=== PATIENT | female | born 1990 | race Two or more races ===

== ENCOUNTER 2017-11-18 10:57 | Emergency (ER) | payer MEDICAID ==
[~2017-11-18] VITALS: Ht 152.4 cm; Wt 112.5 kg
[2017-11-18 11:11] VITALS: BP 139/72
[2017-11-18 12:15] LABS: APPEARANCE,URINE CLEAR; BILIRUBIN, URINE NEGATIVE (NEGATIVE); GLUCOSE, URINE (UA) NEGATIVE (NEGATIVE); KETONES,URINE NEGATIVE (NEGATIVE); LEUKOCYTE ESTERASE ,URINE 3+ (NEGATIVE); NITRITE,URINE NEGATIVE (NEGATIVE); PH,URINE 7 (4.5-8.0); PROTEIN,URINE NEGATIVE (NEGATIVE); UROBILINOGEN,URINE NORMAL MG/DL (0.0-1.0)
[2017-11-18 12:31] LABS: COLOR,URINE YELLOW
--- NOTE | 2017-11-18 12:47 | Emergency Room Report ---
History of Present Illness General Chief Complaint: Multiple Trauma/Fall Source: Patient Present Illness HPI Patient fell in the shower this morning. She hit her head and states LOC for "about a minute". She remembers falling and hitting her head. No NV after event. Occipital tenderness 8/10 and also L little toe pain (more in foot). This radiates slightly to body. Some lower back pain also, but ambulatory and able to sit and stand without difficulty. No neck pain. No preceding dizziness or palpitations. Not on blood thinners. No medicine taken. No fevers, cough, dysuria. Menses irregular and not sure if she is . No problems moving her bowels. ( here with alcohol withdrawal.) Allergies: Coded Allergies: No Known Allergies (Unverified , 11/18/17) Patient History Past Medical History: see triage record Social History: Denies: smoking Social History Narrative Last Menstrual Period: 10/31/17 Reviewed Nursing Documentation: PMH: Agreed; PSxH: Agreed Review of Systems All Other Systems: negative except mentioned in HPI Physical Exam Vital Signs Date Time Temp Pulse Resp B/P (MAP) Pulse Ox O2 Delivery O2 Flow Rate FiO2 11/18/17 11:01 98.4 86 18 139/72 97 Room Air 98.4 Sp02 EP Interpretation: reviewed, normal General Appearance: well appearing, no apparent distress, GCS 15 Head: normocephalic, other - tender occiput with hematoma Eyes: bilateral eye normal inspection, bilateral eye PERRL, bilateral eye EOMI ENT: moist mucus membranes Neck: full range of motion, supple, no bony tend Respiratory: chest non-tender, lungs clear, normal breath sounds Cardiovascular #1: regular rate, rhythm Cardiovascular #2: 2+ radial (R), 2+ dorsalis pedis (L) Gastrointestinal: normal inspection, normal bowel sounds, non tender, no mass, non-distended Musculoskeletal: digits/nails normal, normal range of motion, no calf tenderness, pelvis stable, other - tender little toe metatarsal area, ankle stable, knee not tender. 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 nml as tested, motor strength/tone normal, DTRs symmetric, sensory intact, cerebellar normal, normal gait, speech normal Psychiatric: mood/affect normal Skin: warm/dry, hematoma - head Medical Decision Making Diagnostic Impression: Primary Impression: Multiple injuries due to trauma Additional Impressions: Concussion Qualified Codes: S06.0X1A - Concussion with loss of consciousness of 30 minutes or less, initial encounter Foot contusion Qualified Codes: S90.32XA - Contusion of left foot, initial encounter Back contusion Qualified Codes: S20.222A - Contusion of left back wall of thorax, initial encounter ER Course Patient presents post fall in shower with LOC and L back and foot pain. DDX: concussion, contusions, fractures, strain amongst others. Not amnestic and non- focal neuro - CT not indicated. Foot xrays indicated. Back xrays not indicated based on history and exam. Will treat for pain. Need UA to exclude . Foot xray without fracture. Pradip applied by RN - was too tight and loosened by me. Neurovasc normal as checked by me. Patient improved and sleepy (discussed need to wake once). Patient stable for outpatient observation and treatment. Other X-Ray Diagnostic Results Other X-Ray Diagnostic Results : X-Ray ordered: L foot # of Views/Limited Vs Complete: 3 View Indication: Pain EP Interpretation: Yes Interpretation: no dislocation, no soft tissue swelling, no fractures Impression: No acute disease Electronically Signed by: Carlos Mckeon MD Last Vital Signs Date Time Temp Pulse Resp B/P (MAP) Pulse Ox O2 Delivery O2 Flow Rate FiO2 11/18/17 12:52 98.4 82 18 127/70 97 Room Air Status: improved Disposition: HOME, SELF-CARE Condition: Improved Scripts Ibuprofen* (MOTRIN*) 600 Mg Tablet 600 MG ORAL Q6H PRN for For Pain, #20 TAB Prov: Carlos Mckeon M.D. 11/18/17 Tramadol Hcl* (ULTRAM*) 50 Mg Tablet 50 MG ORAL Q6H PRN for For Pain, #12 TAB 0 Refills Prov: Carlos Mckeon M.D. 11/18/17 Referrals: [facility]ERR[facility] (PCP) Carlos Mckeon M.D. Nov 18, 2017 12:46
[2017-11-18] MEDS ORDERED: TRAMADOL HCL50 MG ORAL (12:50)
[2017-11-18] MEDS ORDERED: IBUPROFEN600 MG ORAL (12:50)
[2017-11-18 12:52] VITALS: BP 127/70
--- NOTE | 2017-11-18 13:03 | Diagnostic Imaging Report ---
Indication: Pain, trauma Technique: 3 views left foot Comparison: none Findings: No acute fractures. No dislocations. The joint spaces are preserved. Impression: No acute process
== END 2017-11-18 12:55 | disposition home or self-care (01) ==
LOC: EMR 11:25
DX: S06.0X1A Concussion with loss of consciousness of 30 minutes or less, initial encounter (principal); S90.32XA Contusion of left foot, initial encounter; S30.0XXA Contusion of lower back and pelvis, initial encounter; W19.XXXA Unspecified fall, initial encounter; Y92.9 Unspecified place or not applicable
CPT/HCPCS: 81003; 81025; 99284

== ENCOUNTER 2019-01-24 22:32 | Emergency (ER) | payer MEDICAID ==
[~2019-01-24] VITALS: Ht 152.4 cm; Wt 111.6 kg
[~2019-01-24 22:32] MED LIST: IBUPROFEN600 MG ORAL; TRAMADOL HCL50 MG ORAL
[2019-01-24 22:45] VITALS: BP 146/92
--- NOTE | 2019-01-24 22:47 | NUR ---
ED Nurse Note: Patient walked in to ER from home c/o abdominal pain 04/02, N/V/D. AAO x4, VSS at this time, skin is dry, intact.
--- NOTE | 2019-01-25 00:15 | Emergency Room Report ---
History of Present Illness General Chief Complaint: Abdominal Pain Source: Patient Present Illness HPI Patient is a 20-year-old female presented after increased left sided flank pain. Patient reports having increased pain to her left flank for the past 2 to 3 days. She reports having increased diarrhea as well as discoloration of urine. Patient has no known past medical history. She reports having increased positional pain. She had not been having any vomiting. She reports having increased diarrhea as well as pain worsening with movement. She reports having some discolored urine with some hematuria Allergies: Coded Allergies: No Known Allergies (Unverified , 11/18/17) Patient History Past Medical History: see triage record Last Menstrual Period: 01/17/19 Now: No : 5 Para: 5 Reviewed Nursing Documentation: PMH: Agreed; PSxH: Agreed Nursing Documentation-PMH Past Medical History: No History, Except For Review of Systems All Other Systems: negative except mentioned in HPI Physical Exam Vital Signs Date Time Temp Pulse Resp B/P (MAP) Pulse Ox O2 Delivery O2 Flow Rate FiO2 01/24/19 22:39 98.2 78 18 146/92 (110) 99 Room Air Sp02 EP Interpretation: reviewed, normal General Appearance: normal inspection, well appearing, no apparent distress, alert, GCS 15, obese Head: atraumatic ENT: normal ENT inspection, hearing grossly normal, normal voice Neck: normal inspection, full range of motion, supple, no bony tend Respiratory: normal inspection, lungs clear, normal breath sounds, no respiratory distress, no retraction, no wheezing Cardiovascular #1: regular rate, rhythm, no edema Gastrointestinal: normal inspection, non tender, soft, no guarding, no hernia, tenderness - left side abdominal tenderness, no rebound Genitourinary: no CVA tenderness Musculoskeletal: normal inspection, back normal, normal range of motion Neurologic: normal inspection, alert, oriented x3, responsive, admitting manager III-XII nml as tested, speech normal Psychiatric: normal inspection, judgement/insight normal, mood/affect normal Skin: normal inspection, normal color, no rash Medical Decision Making Diagnostic Impression: Primary Impression: Anemia Additional Impressions: Diverticulitis large intestine Cholelithiasis Obesity ER Course Patient is a 20-year-old female presented after increased left upper abdominal pain. Differential diagnoses included ischemic bowel, appendicitis, perforated viscus, abdominal aortic aneurysm, inferior myocardial infarction, viral gastroenteritis among others. Because of complexity of patient's case laboratory testing and imaging studies were ordered. CT imaging of the abdomen pelvis showed evidence of acute diverticulitis as well as cholelithiasis. See radiology report for full details. Lab patient states her last menses was 2 weeks prior to arrival. Patient was given testing was notable for some anemia. Patient reports having some intermittent heavy periods. Patient denies any active bleeding. She was given iron patient is given prescription for multiple medications and oral antibiotics. She appears stable for outpatient management. Labs Test 01/25/19 00:20 01/25/19 00:30 White Blood Count 6.1 K/UL (4.8-10.8) Red Blood Count 4.55 M/UL (4.20-5.40) Hemoglobin 8.6 G/DL (12.0-16.0) Hematocrit 29.3 % (37.0-47.0) Mean Corpuscular Volume 64 FL (80-99) Mean Corpuscular Hemoglobin 18.9 PG (27.0-31.0) Mean Corpuscular Hemoglobin Concent 29.4 G/DL (32.0-36.0) Red Cell Distribution Width 17.6 % (11.6-14.8) Platelet Count 304 K/UL (150-450) Mean Platelet Volume 6.6 FL (6.5-10.1) Neutrophils (%) (Auto) 37.8 % (45.0-75.0) Lymphocytes (%) (Auto) 50.1 % (20.0-45.0) Monocytes (%) (Auto) 7.9 % (1.0-10.0) Eosinophils (%) (Auto) 3.5 % (0.0-3.0) Basophils (%) (Auto) 0.7 % (0.0-2.0) Prothrombin Time 10.5 SEC (9.30-11.50) Prothromb Time International Ratio 1.0 (0.9-1.1) Activated Partial Thromboplast Time 23 SEC (23-33) Urine Color Pale yellow Urine Appearance Clear Urine pH 7 (4.5-8.0) Urine Specific [place] 1.010 (1.005-1.035) Urine Protein Negative (NEGATIVE) Urine Glucose (UA) Negative (NEGATIVE) Urine Ketones Negative (NEGATIVE) Urine Blood 1+ (NEGATIVE) Urine Nitrite Negative (NEGATIVE) Urine Bilirubin Negative (NEGATIVE) Urine Urobilinogen Normal MG/DL (0.0-1.0) Urine Leukocyte Esterase 1+ (NEGATIVE) Urine RBC 2-4 /HPF (0 - 2) Urine WBC 0-2 /HPF (0 - 2) Urine Squamous Epithelial Cells Few /LPF (NONE/OCC) Urine Bacteria Few /HPF (NONE) Sodium Level 141 MMOL/L (136-145) Potassium Level 3.7 MMOL/L (3.5-5.1) Chloride Level 104 MMOL/L (98-107) Carbon Dioxide Level 30 MMOL/L (21-32) Anion Gap 7 mmol/L (5-15) Blood Urea Nitrogen 9 mg/dL (7-18) Creatinine 0.6 MG/DL (0.55-1.30) Estimat Glomerular Filtration Rate > 60 mL/min (>60) Glucose Level 139 MG/DL (74-106) Calcium Level 8.7 MG/DL (8.5-10.1) Total Bilirubin 0.2 MG/DL (0.2-1.0) Aspartate Amino Transf (AST/SGOT) 58 U/L (15-37) Alanine Aminotransferase (ALT/SGPT) 91 U/L (12-78) Alkaline Phosphatase 115 U/L (46-116) Troponin I 0.000 ng/mL (0.000-0.056) Total Protein 7.6 G/DL (6.4-8.2) Albumin 3.4 G/DL (3.4-5.0) Globulin 4.2 g/dL Albumin/Globulin Ratio 0.8 (1.0-2.7) Lipase 99 U/L (73-393) Urine HCG, Qualitative Negative (NEGATIVE) Last Vital Signs Date Time Temp Pulse Resp B/P (MAP) Pulse Ox O2 Delivery O2 Flow Rate FiO2 01/24/19 22:45 98.2 18 146/92 99 Room Air 01/24/19 22:45 78 Status: improved Disposition: HOME, SELF-CARE Condition: Stable Scripts Amoxicillin/Potassium Clav 875-125* (AUGMENTIN 875-125 TABLET*) 1 Each Tablet 1 TAB ORAL TWICE A DAY, #14 TAB Prov: Deniz Ceballos MD 01/25/19 Dicyclomine Hcl* (DICYCLOMINE HCL*) 10 Mg Capsule 10 MG ORAL QID, #20 CAP Prov: Deniz Ceballos MD 01/25/19 Docusate Sodium* (COLACE*) 100 Mg Capsule 100 MG ORAL TWICE A DAY, #14 CAP Prov: Deniz Ceballos MD 01/25/19 Ferrous Sulfate* (FERROUS SULFATE*) 325 Mg Tablet 325 MG ORAL TWICE A DAY, #60 TAB 0 Refills Prov: Deniz Ceballos MD 01/25/19 Omeprazole Magnesium (PRILOSEC OTC) 20 Mg Tablet.dr 20 MG ORAL DAILY, #30 TAB Prov: Deniz Ceballos MD 01/25/19 Deniz Ceballos MD Jan 25, 2019 00:15
[2019-01-25 00:39] LABS: BASOPHILS % (AUTO) 0.7 % (0.0-2.0); EOSINOPHILS % (AUTO) 3.5 % (0.0-3.0); HEMATOCRIT 29.3 % (37.0-47.0); HEMOGLOBIN 8.6 G/DL (12.0-16.0); LYMPHOCYTES % (AUTO) 50.1 % (20.0-45.0); MEAN CORPUSCULAR VOLUME 64 FL (80-99); MONOCYTES % (AUTO) 7.9 % (1.0-10.0); NEUTROPHILS % (AUTO) 37.8 % (45.0-75.0); PLATELET COUNT 304 K/UL (150-450); RED BLOOD COUNT 4.55 M/UL (4.20-5.40); RED CELL DISTRIBUTION WIDTH 17.6 % (11.6-14.8); WHITE BLOOD COUNT 6.1 K/UL (4.8-10.8)
[2019-01-25 00:41] LABS: APPEARANCE,URINE CLEAR; BILIRUBIN, URINE NEGATIVE (NEGATIVE); COLOR,URINE PALE YELLOW; GLUCOSE, URINE (UA) NEGATIVE (NEGATIVE); KETONES,URINE NEGATIVE (NEGATIVE); LEUKOCYTE ESTERASE ,URINE 1+ (NEGATIVE); NITRITE,URINE NEGATIVE (NEGATIVE); PH,URINE 7 (4.5-8.0); PROTEIN,URINE NEGATIVE (NEGATIVE); UROBILINOGEN,URINE NORMAL MG/DL (0.0-1.0)
[2019-01-25 00:45] LABS: ANION GAP 7 mmol/L (5-15); BLOOD UREA NITROGEN 9 mg/dL (7-18); CALCIUM 8.7 MG/DL (8.5-10.1); CARBON DIOXIDE 30 MMOL/L (21-32); CHLORIDE 104 MMOL/L (98-107); CREATININE 0.6 MG/DL (0.55-1.30); POTASSIUM 3.7 MMOL/L (3.5-5.1); SODIUM 141 MMOL/L (136-145)
[2019-01-25 00:50] LABS: ALANINE AMINOTRANSFERASE 91 U/L (12-78); ALBUMIN 3.4 G/DL (3.4-5.0); ALBUMIN/GLOBULIN RATIO 0.8 (1.0-2.7); ALKALINE PHOSPHATASE 115 U/L (46-116); ASPARTATE AMINO TRANSFERASE 58 U/L (15-37); BILIRUBIN,TOTAL 0.2 MG/DL (0.2-1.0)
[2019-01-25 01:17] VITALS: BP 146/92
--- NOTE | 2019-01-25 02:35 | NUR ---
ED Nurse Note: Patient is in the bed sleeping, no acute disstress noticed
[2019-01-25] MEDS ORDERED: COLACE100 MG ORAL (03:25)
[2019-01-25] MEDS ORDERED: PRILOSEC OTC20 MG ORAL (03:25)
[2019-01-25] MEDS ORDERED: FERROUS SULFAT325 MG ORAL (03:25)
[2019-01-25] MEDS ORDERED: DICYCLOMINE HCL10 MG ORAL (03:34)
[2019-01-25] MEDS ORDERED: AUGMENTIN 875-1 EAC1 ORAL (03:34)
[2019-01-25 03:40] VITALS: BP 146/92
--- NOTE | 2019-01-25 07:51 | NUR ---
ER DISCHARGE NOTE: Patient is cleared to be discharged per ERMD, pt is aox4, on room air, with stable vital signs. pt was given dc and prescription instructions, pt was able to verbalize understanding, pt id band and iv site removed without complications. pt is able to ambulate with steady gait. pt took all belongings.
--- NOTE | 2019-01-25 09:39 | Diagnostic Imaging Report ---
Indication: Abdominal pain for 2 days Technique: Spiral acquisitions obtained through the abdomen and pelvis. No oral contrast utilized, per emergency room physician request No IV contrast utilized, per referring physician request.. Multiplanar reconstructions were generated. Total dose length product 1087.7 mGycm. CTDIvol(s) 19.75 mGy. Dose reduction achieved using automated exposure control Comparison: None Findings: There is colonic diverticulosis. There is some inflammatory change of the pericolonic fat at the junction of the distal descending and proximal sigmoid. No extraluminal gas or discrete fluid collection demonstrated. Moderate retained stool is seen in the proximal colon. The appendix is normal. No small bowel distention. No free or loculated intraperitoneal gas or fluid. The stomach is mildly distended with food. Distal esophagus is unremarkable. Lack of IV contrast limits assessment of the solid organs. The liver is grossly unremarkable. The gallbladder is contracted and contains gallstones. The pancreas, spleen, adrenals, kidneys are all unremarkable. No retroperitoneal or mesenteric mass or adenopathy. No pelvic mass or adenopathy. The included lung bases demonstrate some focal pleural fat or small subpleural lipoma on the left. There are some linear atelectatic changes or scarring. The bones demonstrate degenerative spondylosis changes. Impression: Positive for uncomplicated acute diverticulitis of the proximal sigmoid colon Cholelithiasis; gallbladder contracted Small left subpleural lipoma and bilateral basilar scarring/atelectasis incidentally noted This agrees with the preliminary interpretation provided overnight by [facility] teleradiology service. The CT scanner at [facility] is accredited by the [employer] and the scans are performed using protocols designed to limit radiation exposure to as low as reasonably achievable to attain images of sufficient resolution adequate for diagnostic evaluation.
== END 2019-01-25 03:40 | disposition home or self-care (01) ==
LOC: EMR 23:07
DX: D64.9 Anemia, unspecified (principal); K57.92 Diverticulitis of intestine, part unspecified, without perforation or abscess without bleeding; K80.20 Calculus of gallbladder without cholecystitis without obstruction; E66.9 Obesity, unspecified; R31.9 Hematuria, unspecified
CPT/HCPCS: 36415; 74176; 80053; 81003; 81025; 83690; 84484; 85025; 85610; 85730; 99284

== ENCOUNTER 2020-07-27 23:10 | Emergency (ER) | payer MEDICAID ==
[~2020-07-27] VITALS: Ht 152.4 cm; Wt 112.5 kg
[~2020-07-27 23:10] MED LIST changes: +AUGMENTIN 875-1 EAC1 ORAL; +COLACE100 MG ORAL; +DICYCLOMINE HCL10 MG ORAL; +FERROUS SULFAT325 MG ORAL; +PRILOSEC OTC20 MG ORAL
--- NOTE | 2020-07-27 23:17 | NUR ---
ED Nurse Note: Pt jillian assist into ED c/o right ankle pain, states that she was ambulating and stepped on a crack and felt her ankle twist, patient unable to place weight on said extremity. happened at around 2100 today. pt is a&ox4, no acute distress, vital stable, and all saft meassure met.
--- NOTE | 2020-07-27 23:29 | Emergency Room Report ---
History of Present Illness General Chief Complaint: Lower Extremity Injury Source: Patient Present Illness [facility] This is a 29-year-old female with no past medical history she presents with chief complaint of right ankle pain and injury. She was walking and she tripped and twisted her right ankle. She fell. This occurred 2 hours prior to arrival. Pain is to the lateral aspect of the ankle. Unable to bear weight. Pain is 8 out of 10. Radiate toward her calf and knee. No other injury. Took Advil 200 mg prior to arrival. 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: No Patient History Past Medical History: none, see triage record, old chart reviewed Past Surgical History: none Pertinent Family History: none Social History: Denies: smoking Last Menstrual Period: 07/04/2020 Now: No : 0 Para: 0 Immunizations: other Reviewed Nursing Documentation: PMH: Agreed; PSxH: Agreed Nursing Documentation-PMH Past Medical History: No History, Except For Review of Systems Eye: Denies: eye pain, blurred vision ENT: Denies: ear pain, nose congestion, throat swelling Respiratory: Denies: cough, shortness of breath Cardiovascular: Denies: chest pain, palpitations Gastrointestinal: Denies: abdominal pain, diarrhea, nausea, vomiting Musculoskeletal: Reports: joint pain; Denies: back pain Skin: Denies: rash Neurological: Denies: headache, numbness Endocrine: Denies: increased thirst, increased urine Hematologic/Lymphatic: Denies: easy bruising All Other Systems: negative except mentioned in HPI Physical Exam Vital Signs Date Time Temp Pulse Resp B/P (MAP) Pulse Ox O2 Delivery O2 Flow Rate FiO2 07/27/20 23:12 98.4 78 15 132/64 (86) 96 Room Air Vitals normal Sp02 EP Interpretation: reviewed, normal General Appearance: well appearing, no apparent distress, alert Head: normocephalic, atraumatic Eyes: bilateral eye PERRL, bilateral eye EOMI ENT: hearing grossly normal, normal pharynx Neck: full range of motion, supple, no meningismus Respiratory: chest non-tender, lungs clear, normal breath sounds Cardiovascular #1: regular rate, rhythm, no murmur Gastrointestinal: normal bowel sounds, non tender, no mass, no organomegaly, no bruit, non-distended Musculoskeletal: back normal, normal range of motion, gait/station normal, other - Right ankle with edema and tenderness to the lateral malleolus. Ankle is otherwise stable. Pulse normal. Psychiatric: mood/affect normal Procedures Splinting Splinting : Consent: Verbal Location: Right ankle Pre-Made Type: aircast Pre-Proc Neuro Vasc Exam: normal Post-Proc Neuro Vasc Exam: normal Patient Tolerated: Well Complications: None Medical Decision Making Diagnostic Impression: Primary Impression: Right ankle sprain Qualified Codes: S93.401A - Sprain of unspecified ligament of right ankle, initial encounter ER Course Presents with right ankle injury. No evidence of any fracture dislocation. There is a calcified mass at the base of the fifth metatarsal bone. This appear to be chronic and not an area of her pain. Other X-Ray Diagnostic Results Other X-Ray Diagnostic Results : X-Ray ordered: Right ankle x-rays # of Views/Limited Vs Complete: 3 View Indication: Pain EP Interpretation: Yes Interpretation: no dislocation, no soft tissue swelling, no fractures Impression: No acute disease Electronically Signed by: Evaristo Archer MD Last Vital Signs Date Time Temp Pulse Resp B/P (MAP) Pulse Ox O2 Delivery O2 Flow Rate FiO2 07/27/20 23:12 98.4 78 15 132/64 (86) 96 Room Air Status: improved Disposition: HOME, SELF-CARE Condition: Stable Scripts Ibuprofen* (MOTRIN*) 600 Mg Tablet 600 MG ORAL Q6H PRN for For Pain, #30 TAB 0 Refills Prov: Evaristo Archer MD 07/27/20 Hydrocodone/Acetaminophen 5-325* (HYDROCODONE/ACETAMINOPHEN 5-325*) 1 Each Tablet 1 TAB ORAL Q6H PRN for For Pain, #15 TAB 0 Refills Prov: Evaristo Archer MD 07/27/20 Referrals: [facility]ERR[facility] (PCP) Patient Instructions: Ankle Sprain Additional Instructions: Elevate ankle. Ice pack to the area. Follow-up with your doctor in 7 days. Return if worse. Evaristo Archer MD Jul 27, 2020 23:29
--- NOTE | 2020-07-27 23:30 | NUR ---
ED Nurse Note: imaging completed at bedside
--- NOTE | 2020-07-27 23:44 | NUR ---
ED Nurse Note: splint applied by tobacco wetter. crutches provided; patient able to demonstrate proper crutch walk.
[2020-07-27] MEDS ORDERED: HYDROCODON-ACE1 EA15 ORAL (23:47)
[2020-07-27] MEDS ORDERED: IBUPROFEN600 M1 ORAL (23:47)
--- NOTE | 2020-07-27 23:50 | Diagnostic Imaging Report ---
EXAM: XR Right Ankle Complete, 3 or More Views CLINICAL HISTORY: TRAUMA TECHNIQUE: Frontal, lateral and oblique views of the right ankle. COMPARISON: No relevant prior studies available. FINDINGS: Artifact from overlying bandage/dressing material. No acute fracture or dislocation.
[2020-07-27 23:55] VITALS: BP 132/64
--- NOTE | 2020-07-27 23:55 | NUR ---
ER DISCHARGE NOTE: Patient is cleared to be discharged per ERMD, pt is aox4, on room air, with stable vital signs. pt was given dc and prescription instructions, pt was able to verbalize understanding, pt id band and iv site removed without complications. pt is able to ambulate with crutch. pt took all belongings.
== END 2020-07-27 23:55 | disposition home or self-care (01) ==
LOC: EMR 23:25
DX: S93.401A Sprain of unspecified ligament of right ankle, initial encounter (principal); W18.40XA Slipping, tripping and stumbling without falling, unspecified, initial encounter; Y93.01 Activity, walking, marching and hiking; Y92.9 Unspecified place or not applicable
CPT/HCPCS: 73610; Z7502; 29515; 99283

== ENCOUNTER 2020-09-04 19:36 | Emergency (ER) | payer MEDICAID ==
[~2020-09-04] VITALS: Ht 152.4 cm; Wt 112.5 kg
[~2020-09-04 19:36] MED LIST changes: +HYDROCODON-ACE1 EA15 ORAL; +IBUPROFEN600 M1 ORAL
[2020-09-04 19:45] VITALS: BP 133/76
[2020-09-04] MEDS ORDERED: Ketorolac 30mg Inj IV ONE (20:00)
--- NOTE | 2020-09-04 20:00 | NUR ---
ED Nurse Note: pt aware of positive urine test. toradol held per DANIEL Bell. pt without increased discomfort. awaiting ultrasound
--- NOTE | 2020-09-04 20:06 | Emergency Room Report ---
History of Present Illness General Chief Complaint: Abdominal Pain Source: Patient Present Illness HPI 29-year-old female with history of anxiety and diverticulitis here complaining of 1 week of constipation, diffuse abdominal pain, and frontal headache with radiation to the posterior neck. Reports that she has been making some bowel movement however with a lot of difficulty, straining and pain. Denies any blood in stool. Denies any nausea or vomiting. Denies fever and chills. Reports that she has not had her menstrual period this month. Denies urinary symptoms. Reports that she has been passing gas. Reports that headache is worse upon waking up in the morning however goes away after drinking coffee and taking a shower. Patient also strains her arms a lot in front of the monitor. 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 Denies chest pain, shortness of breath, cough or congestion. Does not know her status. Denies drug use, tobacco smoke, alcohol intake. Denies photophobia, blurred vision Allergies: Coded Allergies: No Known Allergies (Unverified , 11/18/17) COVID-19 Screening Contact w/high risk pt: No Experienced COVID-19 symptoms?: No COVID-19 Testing performed ASSOCIATE PROFESSOR: No Patient History Past Medical History: see triage record Past Surgical History: none Pertinent Family History: none Last Menstrual Period: 07/29/20 Reviewed Nursing Documentation: PMH: Agreed; PSxH: Agreed Nursing Documentation-PMH Past Medical History: No History, Except For Review of Systems All Other Systems: negative except mentioned in HPI Physical Exam Vital Signs Date Time Temp Pulse Resp B/P (MAP) Pulse Ox O2 Delivery O2 Flow Rate FiO2 09/04/20 19:44 99.0 100 19 135/68 (90) 100 Room Air Sp02 EP Interpretation: reviewed, normal General Appearance: mild distress, obese Head: normocephalic, atraumatic Eyes: bilateral eye normal inspection, bilateral eye PERRL ENT: no angioedema Neck: full range of motion Respiratory: chest non-tender, no rhonchi, no respiratory distress, no retraction, no accessory muscle use Cardiovascular #1: regular rate, rhythm, no edema Gastrointestinal: normal bowel sounds, non tender, soft, no mass, no organomegaly, no peritonitis, no bruit, non-distended, no guarding, no hernia, no pulsatile mass, no rebound Genitourinary: no CVA tenderness Musculoskeletal: back normal Neurologic: alert, motor strength/tone normal, oriented x3, sensory intact, responsive, speech normal Psychiatric: judgement/insight normal, memory normal, mood/affect normal, no suicidal/homicidal ideation Skin: no rash Lymphatic: no adenopathy Medical Decision Making PA Attestation All my diagnosis and treatment plans were reviewed ad discussed with my supervising physician Dr. Gonsalez Diagnostic Impression: Primary Impression: Abdominal pain during Additional Impressions: UTI (urinary tract infection) Iron deficiency Constipation Tension headache ER Course 29-year-old female with history of anxiety and diverticulitis here complaining of 1 week of constipation, diffuse abdominal pain, and frontal headache with radiation to the posterior neck. Reports that she has been making some bowel movement however with a lot of difficulty, straining and pain. Denies any blood in stool. Denies any nausea or vomiting. Denies fever and chills. Reports that she has not had her menstrual period this month. Denies urinary symptoms. Reports that she has been passing gas. Reports that headache is worse upon waking up in the morning however goes away after drinking coffee and taking a shower. Patient also strains her arms a lot in front of the monitor. 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 Denies chest pain, shortness of breath, cough or congestion. Does not know her status. Denies drug use, tobacco smoke, alcohol intake. Denies photophobia, blurred vision Ddx considered but are not limited to: appendicitis, cholecystis, gastritis, gastroenteritis, UTI, pyelonephritis, SBO, diverticulitis, influenza with GI manifestation, [place], complication with Ectopic , threatened , spontaneous , abdominal pain urine Vital signs: are WNL, pt. is afebrile H&PE are most consistent with: Abdominal pain urine , UTI, iron deficiency, constipation, tension headache ORDERS: CBC, CMP, UA, tox screen, urine test, lipase, hCG quantitative, type and screen, OB ultrasound, Colace, lactulose, Diclegis, vitamins with iron, Keflex, Tylenol ED INTERVENTIONS: NS bolus, DISCHARGE: At this time pt. is stable for d/c to home. Will provide printed patient care instructions, and any necessary prescriptions. Care plan and follow up instructions have been discussed with the patient prior to discharge. Take medication as directed, follow-up with PAI GOW MANAGER in 24-48 hours, if worsening symptoms return to the emergency room Also address her headaches your primary doctor for further evaluation, also see engine boss as headache can be secondary to changes of vision. CT/MRI/US Diagnostic Results CT/MRI/US Diagnostic Results : Imaging Test Ordered: OB ultrasound Impression 5 weeks no abnormality Last Vital Signs Date Time Temp Pulse Resp B/P (MAP) Pulse Ox O2 Delivery O2 Flow Rate FiO2 09/04/20 19:44 99.0 100 19 135/68 (90) 100 Room Air Disposition: HOME, SELF-CARE Condition: Stable Scripts Acetaminophen* (TYLENOL EXTRA STRENGTH*) 500 Mg Tablet 500 MG ORAL Q8H PRN for Prn Headache/Temp > 101, #30 TAB 0 Refills Prov: Arabella Queen 09/04/20 Lactulose (LACTULOSE*) 20 Gm/30 Ml Solution 15 ML ORAL TID, #150 ML 0 Refills Prov: Arabella Queen 09/04/20 Docusate Sodium* (COLACE*) 100 Mg Capsule 100 MG ORAL DAILY, #10 CAP Prov: Arabella Queen 09/04/20 #103/Iron Fumarate/Fa ( TABLET) 1 Each Tablet 1 EACH PO DAILY, #30 TAB Prov: Arabella Queen 09/04/20 Doxylamine/Pyridoxine Hcl (DICLEGIS DR 10-10 MG TABLET) 1 Each Tablet.dr 1 EACH PO BID, #20 TAB Prov: Arabella Queen 09/04/20 Cephalexin* (KEFLEX*) 500 Mg Capsule 500 MG ORAL EVERY 12 HOURS for 7 Days, #14 CAP 0 Refills Prov: Arabella Queen 09/04/20 Patient Instructions: Abdominal Pain During , [id number], Constipation, Adult, [id number], Iron Deficiency Anemia, Adult, Urinary Tract Infection, [id number] Additional Instructions: Take medication as directed, follow-up with PAI GOW MANAGER in 24-48 hours, if worsening symptoms return to the emergency room Arabella Queen Sep 04, 2020 20:06
[2020-09-04 20:19] LABS: BASOPHILS % (AUTO) 0.9 % (0.0-2.0); EOSINOPHILS % (AUTO) 2.3 % (0.0-3.0); HEMATOCRIT 30.8 % (37.0-47.0); HEMOGLOBIN 8.4 G/DL (12.0-16.0); MEAN CORPUSCULAR VOLUME 63 FL (80-99); MONOCYTES % (AUTO) 7.7 % (1.0-10.0); NEUTROPHILS % (AUTO) 52.1 % (45.0-75.0); PLATELET COUNT 334 K/UL (150-450); RED BLOOD COUNT 4.86 M/UL (4.20-5.40); WHITE BLOOD COUNT 7.1 K/UL (4.8-10.8)
[2020-09-04 20:21] LABS: APPEARANCE,URINE SLIGHTLY CLOUDY; BILIRUBIN, URINE NEGATIVE (NEGATIVE); COLOR,URINE PALE YELLOW; GLUCOSE, URINE (UA) NEGATIVE (NEGATIVE); KETONES,URINE NEGATIVE (NEGATIVE); LEUKOCYTE ESTERASE ,URINE 3+ (NEGATIVE); NITRITE,URINE NEGATIVE (NEGATIVE); PH,URINE 8 (4.5-8.0); PROTEIN,URINE NEGATIVE (NEGATIVE); UROBILINOGEN,URINE NORMAL MG/DL (0.0-1.0)
[2020-09-04 20:30] LABS: ANION GAP 9 mmol/L (5-15); BLOOD UREA NITROGEN 7 mg/dL (7-18); CALCIUM 8.7 MG/DL (8.5-10.1); CARBON DIOXIDE 27 MMOL/L (21-32); CHLORIDE 103 MMOL/L (98-107); CREATININE 0.6 MG/DL (0.55-1.30); POTASSIUM 3.1 MMOL/L (3.5-5.1); SODIUM 138 MMOL/L (136-145)
[2020-09-04 20:34] LABS: ALANINE AMINOTRANSFERASE 101 U/L (12-78); ALBUMIN 3.4 G/DL (3.4-5.0); ALBUMIN/GLOBULIN RATIO 0.8 (1.0-2.7); ALKALINE PHOSPHATASE 94 U/L (46-116); ASPARTATE AMINO TRANSFERASE 74 U/L (15-37); BILIRUBIN,TOTAL 0.3 MG/DL (0.2-1.0)
[2020-09-04] MEDS ORDERED: DICLEGIS DR 101 EACH PO (21:01)
[2020-09-04] MEDS ORDERED: TYLENOL EXTRA500 MG ORAL (21:01)
[2020-09-04] MEDS ORDERED: COLACE100 MG ORAL (21:01)
[2020-09-04] MEDS ORDERED: CEPHALEXIN500 MG ORAL (21:01)
[2020-09-04] MEDS ORDERED: LACTULOSE20 GM/301 ORAL (21:01)
--- NOTE | 2020-09-04 21:07 | NUR ---
ED Nurse Note: bedside us being done. pt tolerating well.
--- NOTE | 2020-09-04 21:29 | Diagnostic Imaging Report ---
EXAM: US First Trimester , Transabdominal and Transvaginal CLINICAL HISTORY: PAIN TECHNIQUE: Real-time transabdominal and transvaginal obstetrical ultrasound of the maternal pelvis and a first trimester with image documentation. Transvaginal imaging was used for better evaluation of the fetus and adnexa. COMPARISON: No relevant prior studies available. FINDINGS: Based on an LMP of 07/29/2020, gestational age by dates is 5 weeks 2 days with an estimated delivery date by LMP May 05, 2021. An intrauterine gestational sac is seen without a pole or yolk sac. Average ultrasound age based on mean sac diameter of 1.2 cm is 5 weeks 0 days with an estimated delivery date by ultrasound of May 07, 2021. The ovaries were not well seen due to patient body habitus, even with endovaginal imaging. IMPRESSION: Intrauterine gestation with ultrasound age of 5 weeks 0 days and estimated delivery date by ultrasound of May 07, 2021. No pole and yolk sac is currently visualized. Recommend correlation with serial beta-hCG and follow-up ultrasound.
--- NOTE | 2020-09-04 21:30 | NUR ---
Note whitkellen in EDM - 09/04/20 at 2146 by SAIGE ER DISCHARGE NOTE: Patient is cleared to be discharged per ERMD, pt is aox4, on room air, with stable vital signs. pt was given dc and prescription instructions, pt was able to verbalize understanding, pt id band and iv site removed without complications. pt is able to ambulate with steady gait. pt took all belongings.
[2020-09-04 21:37] VITALS: BP 136/78
--- NOTE | 2020-09-04 21:37 | NUR ---
ED Nurse Note: Pt cleared by health care Provider for discharge. DC instructions/prescription was given and explained to pt and verbalized understanding of teachings. All medical devices such as ID band removed. Pt is AAO x4, ambulatory and left with all personal belongings. pt given us report and labs to give to ob md for follow up.
== END 2020-09-04 21:37 | disposition home or self-care (01) ==
LOC: EMR 20:04
DX: O26.891 Other specified pregnancy related conditions, first trimester (principal); R10.9 Unspecified abdominal pain; O23.41 Unspecified infection of urinary tract in pregnancy, first trimester; E61.1 Iron deficiency; K59.00 Constipation, unspecified; G44.209 Tension-type headache, unspecified, not intractable; Z3A.01 Less than 8 weeks gestation of pregnancy
CPT/HCPCS: 36415; 76801; 80053; 80307; 81003; 81025; 83690; 84702; 85025; 86850; 86900; 86901; 87086; 96360; Z7502; 99284